=== PATIENT | female | born 1940 | race Caucasian/White ===

== ENCOUNTER 2016-10-15 23:59 | Emergency (ER) | payer MEDICARE, OTHER ==
[~2016-10-15 23:59] MED LIST: ADVAIR INH; ADVAIR250 INH; ALLEGRA180 PO; ALLEGRA30 MG PO; ASAB PO; ATEN25 PO; B121000P IM; BENICAR20 PO; CALTRA600D PO; CALTRATE PO; DULERA 100 MCG/13 GM INH; DULERA 200 MCG/13 GM INH; DULERA IH; ESTRACE0.5 MG OR; FIBERCON PO; HYOMAX-SL0.125 MG PO; IRON325 MG PO; KONSYL100 % PO; LEVAQUIN750 MG PO; LORTAB 5 PO; MCZ25 PO; MIRALAXPKT PO; NEUR100 PO; NEXIUM40 PO; NORCO1 TA1 PO; P10 PO; PLAVIX PO; PRILO PO; PRILOSEC OTC20 MG PO; PROAIR HFA INH; PROTONIX PO; PROVENTINH INH; RED YEAS1 PO; SIN25 PO; SINEMET PO; TESSALON200 MG PO; TUSSIONEX PO/LIQ; V5 PO; VALIUM5 MG PO; VALTREX1 GM PO; VENTOLIN HFA INH; VITAMIN B-121000 MC1 SL; VITAMIN B-2100 MG PO; VITAMIN D1000 UNI1 PO; WELLSR150 PO; WELLXL150 PO
== END 2016-10-16 02:01 | disposition home or self-care (01) ==
LOC: ER 23:59
DX: M79.2 Neuralgia and neuritis, unspecified (principal); J45.909 Unspecified asthma, uncomplicated; I10 Essential (primary) hypertension; K21.9 Gastro-esophageal reflux disease without esophagitis; Z86.73 Personal history of transient ischemic attack (TIA), and cerebral infarction without residual deficits; Z88.1 Allergy status to other antibiotic agents; Z88.5 Allergy status to narcotic agent; Z91.048 Other nonmedicinal substance allergy status; Z79.891 Long term (current) use of opiate analgesic; Z79.899 Other long term (current) drug therapy
CPT/HCPCS: 70450; 93005; 99284